=== PATIENT | male | born 1995 | race Hispanic/Latino ===

== ENCOUNTER 2022-03-24 15:40 | Emergency (ER) | payer MEDICAID ==
[2022-03-24 17:23] VITALS: BP 116/67
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
== END 2022-03-25 00:20 | disposition home or self-care (01) ==
LOC: ED 15:40
DX: L03.90 Cellulitis, unspecified (principal); F17.200 Nicotine dependence, unspecified, uncomplicated
CPT/HCPCS: 99283